=== PATIENT | female | born 1980 | race Caucasian/White ===

== ENCOUNTER → 2018-01-26 15:12 | Outpatient (CLI) | payer OTHER, SELFPAY ==
[2018-01-29 13:08] LABS: HPV APTIMA, High Risk Negative (Negative)
== END ==
PROVIDERS: Family Provider Family Medicine; PCP Family Medicine; Visit Provider Obstetrics & Gynecology
DX: Z12.4 Encounter for screening for malignant neoplasm of cervix (principal); Z11.51 Encounter for screening for human papillomavirus (HPV)
CPT/HCPCS: 88175; G0145

== ENCOUNTER → 2020-03-03 07:18 | Outpatient (CLI) | payer OTHER, SELFPAY ==
[2018-11-27 16:50] VITALS: BMI 22.9
[2020-03-03 08:22] LABS: Amphetamine Urine VISTA NEGATIVE (<1000 ng/mL); Barbiturate Urine VISTA NEGATIVE (< 200 ng/mL); Benzodiazepine Urine VISTA NEGATIVE (< 200 ng/mL); Cocaine Urine VISTA NEGATIVE (< 300 ng/mL); Ecstacy Urine VISTA POSITIVE (< 500 ng/mL); Methadone Urine VISTA NEGATIVE (< 300 ng/mL); PCP Urine VISTA NEGATIVE (< 25 ng/mL); THC Urine VISTA NEGATIVE (< 50 ng/mL); Vista UDS pH Range 6
[2020-03-03 08:23] LABS: SARS-COV-2 TOTAL ABS Nonreactive (Nonreactive)
== END ==
PROVIDERS: PCP Family Medicine; Referring Provider Family Medicine; Visit Provider Family Medicine
DX: Z20.828 Contact with and (suspected) exposure to other viral communicable diseases (principal)
CPT/HCPCS: 36415; 80307; 86769

== ENCOUNTER → 2020-03-07 11:40 | Outpatient (CLI) | payer OTHER, SELFPAY ==
[2018-11-27 16:50] VITALS: BMI 22.9
[2020-03-07 13:11] LABS: Amphetamine Urine VISTA NEGATIVE (<1000 ng/mL); Barbiturate Urine VISTA NEGATIVE (< 200 ng/mL); Benzodiazepine Urine VISTA NEGATIVE (< 200 ng/mL); Cocaine Urine VISTA NEGATIVE (< 300 ng/mL); Ecstacy Urine VISTA POSITIVE (< 500 ng/mL); Methadone Urine VISTA NEGATIVE (< 300 ng/mL); PCP Urine VISTA NEGATIVE (< 25 ng/mL); THC Urine VISTA NEGATIVE (< 50 ng/mL); Vista UDS pH Range 7
== END ==
PROVIDERS: PCP Family Medicine; Referring Provider Family Medicine; Visit Provider Family Medicine
DX: Z02.1 Encounter for pre-employment examination (principal)
CPT/HCPCS: 80307

== ENCOUNTER → 2021-04-05 14:58 | Outpatient (CLI) | payer BC, SELFPAY ==
[2020-04-03 15:42] VITALS: BMI 25.3
--- NOTE | 2021-04-05 15:03 | BI_ITS ---
MAMMOGRAPHY - BILATERAL SCREENING REASON FOR EXAM: Female, 41 years old. Routine annual screening examination. PERTINENT HISTORY: Aunts with breast cancer. TECHNIQUE: Digital bilateral breast dmitry (3D mammographic acquisition) in the CC and MLO projections. 2-D mediolateral oblique (MLO) and craniocaudad (CC) views of both breasts were obtained. CAD: Full Field Digital Mammography with Computer Added Detection was performed. COMPARISON: Comparison is made with prior study of 10/28/2012. FINDINGS: Breast Composition: The breasts are extremely dense, which lowers the sensitivity of mammography. There are no dominant masses or suspicious calcifications. Stable calcified nodule in the upper medial aspect of the left breast with calcified fibroadenoma. No other significant abnormalities are identified. There has been no significant change since the prior study. BI/SCRN MAMM (CAD)W/DMITRY BILAT IMPRESSION: Stable bilateral screening mammogram. Yearly follow-up mammogram recommended. (A) ASSESSMENT CATEGORY: BIRADS Category 2: Benign. A letter regarding these results will be sent to the patient by the facility within 30 days. Approximately 10% of breast cancers are not detected by mammography. A normal mammogram should not delay biopsy of a clinically suspicious abnormality. [id number] Electronically Signed: Lv Garcia MD at 15:48 EDT , Service support ,
== END ==
PROVIDERS: PCP Family Medicine; Referring Provider Obstetrics & Gynecology; Visit Provider Obstetrics & Gynecology
DX: Z12.31 Encounter for screening mammogram for malignant neoplasm of breast (principal)
CPT/HCPCS: 77063; 77067

== ENCOUNTER → 2022-04-16 | Outpatient (CLI) | payer BC, SELFPAY ==
--- NOTE | 2022-04-16 15:16 | BI_ITS ---
MAMMOGRAPHY - BILATERAL SCREENING REASON FOR EXAM: Female, 42 years old. Routine annual screening examination. PERTINENT HISTORY: Aunts with breast cancer. TECHNIQUE: Digital bilateral breast dmitry (3D mammographic acquisition) in the CC and MLO projections. 2-D mediolateral oblique (MLO) and craniocaudad (CC) views of both breasts were obtained. CAD: Full Field Digital Mammography with Computer Added Detection was performed. COMPARISON: Comparison is made with prior study dated 04/05/2021 and 10/28/2012. FINDINGS: Breast Composition: The breasts are extremely dense, which lowers the sensitivity of mammography. There are no dominant masses or suspicious calcifications. Stable 2.3 cm x 1.4 cm densely calcified nodule in the slightly upper medial aspect of the left breast. Stable partially calcified nodule in the axillary region of the left breast No other significant abnormalities are identified. There has been no significant change since the prior study. BI/SCRN MAMM (CAD)W/DMITRY BILAT IMPRESSION: Stable bilateral screening mammogram. Yearly follow-up mammogram recommended. (A) ASSESSMENT CATEGORY: BIRADS Category 2: Benign. A letter regarding these results will be sent to the patient by the facility within 30 days. Approximately 10% of breast cancers are not detected by mammography. A normal mammogram should not delay biopsy of a clinically suspicious abnormality. [id number] Electronically Signed: Lv Garcia MD at 9:41 EDT ,
== END | disposition home or self-care (01) ==
LOC: OPBI 15:15
PROVIDERS: PCP Family Medicine; Visit Provider Obstetrics & Gynecology
DX: Z12.31 Encounter for screening mammogram for malignant neoplasm of breast (principal)
CPT/HCPCS: 77063; 77067

== ENCOUNTER → 2022-04-18 | Outpatient (CLI) | payer BC, SELFPAY ==
[2022-04-25 11:03] LABS: HPV APTIMA, High Risk Negative (Negative)
== END | disposition home or self-care (01) ==
LOC: LABSPEC 16:46
PROVIDERS: PCP Family Medicine; Visit Provider Obstetrics & Gynecology
DX: Z01.419 Encounter for gynecological examination (general) (routine) without abnormal findings (principal)
CPT/HCPCS: 87624; 88175; G0145

== ENCOUNTER → 2023-01-02 | Outpatient (CLI) | payer BC, SELFPAY ==
[2023-01-02 12:20] LABS: Absolute Lymphocyte Count 2.04 X10^3/uL (0.83-4.51); Absolute Neutrophil Count 3.1 X10^3/uL (2.0-7.7); Basophil# 0.05 X10^3/uL; Basophil% 0.9 % (0-1); Eosinophil# 0.09 X10^3/uL; Eosinophils% 1.5 % (0-5); Hematocrit 42.5 % (37-47); Hemoglobin 13.7 g/dL (12.0-15.0); Lymphocyte # 2.04 X10^3/ul (0.83-4.51); Lymphocyte % 35.1 % (19-41); Mean Corp Hgb Conc 32.2 g/dL (32-36); Mean Corpuscular Hgb 29.8 pg (27.0-32.0); Mean Corpuscular Volume 92.4 fL (81-99); Mean Platelet Vol. 10.1 fl (6.2-12.0); Monocyte# 0.53 X10^3/uL; Monocyte% 9.1 % (0-10); NRBC Flagged by Analyzer 0 % (0-5); Neutrophil % 53.2 % (47-70); Platelet Count 316 K/mm3 (150-450); RBC Distribution Width CV 12.8 % (11.6-14.6); RBC Distribution Width SD 43.7 fl (35.1-43.9); White Blood Count 5.8 K/mm3 (4.4-11.0)
[2023-01-02 12:48] LABS: ALB/GLOB Ratio 0.9 RATIO (0.9-2.4); AST(SGOT) 23 U/L (15-37); Alanine Aminotransfer ALT/SGPT 20 U/L (13-56); Albumin, Serum 3.7 g/dL (3.2-5.0); Alkaline Phosphatase 69 U/L (45-117); Anion Gap 5 (5-15); BUN 11 mg/dL (7-18); BUN/Creat Ratio 14.4 RATIO (10-20); Calcium,Total 9.2 mg/dL (8.5-10.1); Chloride 104 mmol/L (98-107); Cholesterol 235 mg/dL (200); Creatinine, Serum 0.76 mg/dL (0.55-1.02); EST Glomerular Filtration Rate 88 mL/min (>60); Est Glom Filt Rate - Afr Amer 107 mL/min (>60); Globulin 4.1 g/dL (2.2-4.2); Glucose 89 mg/dL (74-106); High Density Lipoprotein 63 mg/dL; Potassium 4.1 mmol/L (3.5-5.1); Protein, Total 7.8 g/dL (6.4-8.2); Sodium Level 137 mmol/L (136-145); Thyroid Stim Hormone (TSH) 0.93 uIU/mL (0.358-3.74); Triglycerides 55 mg/dL; Very Low Density Lipoprotein 11 mg/dL (5-40)
== END | disposition home or self-care (01) ==
LOC: BFHLAB 08:34
PROVIDERS: PCP Family Medicine; Referring Provider Family Medicine; Visit Provider Family Medicine
DX: Z00.00 Encounter for general adult medical examination without abnormal findings (principal)
CPT/HCPCS: 36415; 80053; 80061; 84443; 85025

== ENCOUNTER → 2023-04-24 | Outpatient (CLI) | payer BC, SELFPAY ==
--- NOTE | 2023-04-24 15:17 | BI_ITS ---
MAMMOGRAPHY - BILATERAL SCREENING REASON FOR EXAM: Female, 43 years old. Routine annual screening examination. PERTINENT HISTORY: Aunts with breast cancer. TECHNIQUE: Digital bilateral breast dmitry (3D mammographic acquisition) in the CC and MLO projections. 2-D mediolateral oblique (MLO) and craniocaudad (CC) views of both breasts were obtained. CAD: Full Field Digital Mammography with Computer Added Detection was performed. COMPARISON: Comparison is made with prior study April 16, 2022 and April 05, 2021. FINDINGS: Breast Composition: The breasts are extremely dense, which lowers the sensitivity of mammography. There are no dominant masses or suspicious calcifications. Stable 2.3 cm x 1.4 cm densely calcified nodule in the slightly upper medial aspect of the left breast. Stable partially calcified nodule in the axillary region of the left breast. No other significant abnormalities are identified. There has been no significant change since the prior study. BI/SCRN MAMM (CAD)W/DMITRY BILAT IMPRESSION: Stable bilateral screening mammogram. Yearly follow-up mammogram recommended. (A) ASSESSMENT CATEGORY: BIRADS Category 2: Benign. A letter regarding these results will be sent to the patient by the facility within 30 days. Approximately 10% of breast cancers are not detected by mammography. A normal mammogram should not delay biopsy of a clinically suspicious abnormality. [id number] Electronically Signed: Lv Garcia MD at 8:31 EDT ,
== END | disposition home or self-care (01) ==
LOC: OPBI 15:16
PROVIDERS: PCP Family Medicine; Referring Provider Obstetrics & Gynecology; Visit Provider Obstetrics & Gynecology
DX: Z12.31 Encounter for screening mammogram for malignant neoplasm of breast (principal); Z80.3 Family history of malignant neoplasm of breast
CPT/HCPCS: 77063; 77067

== ENCOUNTER → 2024-07-06 | Outpatient (CLI) | payer BC, SELFPAY ==
--- NOTE | 2024-07-06 13:09 | BI_ITS ---
MAMMOGRAPHY - BILATERAL SCREENING 3-D TOMOSYNTHESIS REASON FOR EXAM: Female, 44 years old. breast cancer screening PERTINENT HISTORY: No significant family history. TECHNIQUE: 2-D mammograms and 3-D Tomosynthesis of the breast (s) were performed. CAD was performed. COMPARISON: 04/24/2023 FINDINGS: The breast composition is Extermely dense tissue. Scattered benign calcifications are seen. No dense spiculated masses or suspicious microcalcifications are identified. No architectural distortion is identified. There is no skin thickening or retraction. There has been no significant change since the prior study. No change in a 3 cm oval circumscribed equal density mass in the upper inner quadrant of the left breast with coarse calcifications which has been biopsied consistent with a degenerating fibroadenoma. BI/SCRN MAMM (CAD)W/DMITRY BILAT IMPRESSION: No mammographic signs of malignancy. Routine yearly mammograms recommended. ASSESSMENT CATEGORY: BIRADS Category 2: Benign. A letter regarding these results will be sent to the patient by the facility within 30 days. FOLLOW UP RECOMMENDATION: Yearly follow up mammogram recommended. (A) Approximately 10% of breast cancers are not detected by mammography. A normal mammogram should not delay biopsy of a clinically suspicious abnormality. Electronically Signed: Amauri Smiht MD at 14:52 EST ,
== END | disposition home or self-care (01) ==
LOC: OPBI 13:09
PROVIDERS: PCP Family Medicine; Referring Provider Obstetrics & Gynecology; Visit Provider Obstetrics & Gynecology
DX: Z12.31 Encounter for screening mammogram for malignant neoplasm of breast (principal)
CPT/HCPCS: 77063; 77067

== ENCOUNTER → 2025-07-08 | Outpatient (CLI) | payer BC, SELFPAY ==
--- NOTE | 2025-07-08 08:30 | BI_ITS ---
EXAM: SCRN MAMM (CAD)W/DMITRY BILAT DATE: 07/08/2025 CLINICAL HISTORY: F, Age 45 y/o , SCREEN FOR BREAST CANCER TECHNIQUE: Procedure Code: [id number] Modality: MG Procedure: SCRN MAMM (CAD)W/DMITRY BILAT COMPARISON: Prior exam(s) dated 07/06/2024, 04/24/2023, and 04/16/2022. FINDINGS: TISSUE DENSITY: The breasts are heterogeneously dense, which may obscure small masses. Bilateral Breast Mammographic Findings: There are no suspicious masses, suspicious clustered microcalcifications, architectural distortion or secondary signs of malignancy identified in either breast. Benign-appearing round microcalcifications are seen in both breasts. 2 partially obscured isodense masses are seen in the left breast with coarse calcifications within them. These are most compatible with degenerating fibroadenomas and are similar when compared to the prior exams. These are located in superior outer quadrant and superior medial quadrant. There is a partially obscured stable isodense mass in the lateral, middle 3rd aspect of the left breast. BI/SCRN MAMM (CAD)W/DMITRY BILAT IMPRESSION: Benign screening mammogram OVERALL FINAL ASSESSMENT BI-RADS 2: BENIGN RECOMMENDATION: Routine annual follow-up in 1 Year Additional Recommendation none A letter with findings and recommendations will be mailed to the patient. Reading Location: [id number]
--- OUTSIDE RECORDS SUMMARY | 2025-07-08 08:52 | XMS RPT_ITS | CCD ---
Author Organization [facility] Care Team Providers Care Customer Sales Distributor Name Role Phone Dr. Gilberto Card Primary Care Provider Dr. Gilberto Card Referring Provider Dr. Bonita Joiner Attending Provider Gilberto Card Referring Unavailable Stevie Cedeno Attending Unavailable Gilberto Card Primary Care Unavailable Bonita Joiner Attending Unavailable Bonita Joiner Referring Unavailable Gilberto Card Primary Care Unavailable Katie Rolle Attending Unavailable Katie Rolle Referring Unavailable Gilberto Card Primary Care Unavailable Gilberto Card Referring Unavailable Katie Rolle Attending Unavailable Gilberto Card Primary Care Unavailable Allergies Allergy Classification Reported Allergen(s) Allergy Type Date of Onset Reaction(s) Facility (2 sources) buPROPion Drug Allergy 04-03-2020 Other [facility] (1 source) buPROPion Drug Allergy 12-07-2024 [facility] Repository Medications Current Medications Medication Drug Class(es) Dates Sig (Normalized) Sig (Original) fluticasone propionate 0.05 mg/actuat metered dose nasal spray (2 sources) Corticosteroid Start: 09-18-2021 take 1 spray(s) nasal route once daily Fluticasone Propionate (Allergy Relief (Fluticasone)) 50 mcg/actuation spray,suspension Active 1 SPRAY INTRANASAL DAILY September 18, 2021 1:00am administer into each nostril traZODone hydrochloride 100 mg oral tablet (2 sources) Serotonin Reuptake Inhibitor Start: 01-26-2018 take 100 mg by mouth once daily Trazodone Active 100 MG PO daily January 26, 2018 12:00am 24 hr venlafaxine 37.5 mg extended release oral capsule (2 sources) Serotonin and Norepinephrine Reuptake Inhibitor Start: 01-26-2018 take 1 capsule by mouth once daily Venlafaxine (Effexor Xr) 37.5 mg capsule,extended release 24hr Active 37.5 MG PO daily January 26, 2018 12:00am Completed/Discontinued Medications Medication Drug Class(es) Dates Sig (Normalized) Sig (Original) amoxicillin 875 mg / clavulanate 125 mg oral tablet (4 sources) Penicillin-class Antibacterial Start: 09-18-2021 End: 04-18-2022 take 1 tablet by mouth every twelve hours Amoxicillin-Pot Clavulanate Discontinued 1 TABLET PO Q12H September 18, 2021 1:00am April 18, 2022 3:28pm Start: 11-27-2018 End: 12-07-2018 take 1 tablet by mouth every twelve hours Amoxicillin-Pot Clavulanate (Augmentin) 875-125 mg tablet Discontinued 1 TABLET PO Q12H 30 05November 27, 2018 12:00am December 07, 2018 12:10am Problems Active Problems Problem Classification Problem Date Documented Da te Episodic/Chronic Anxiety disorders (2 sources) Mixed anxiety and depressive disorder; Translations: [Anxiety disorder, unspecified] 04-03-2020 Chronic Other screening for suspected conditions (not mental disorders or infectious disease) (2 sources) Encounter for screening mammogram for malignant neoplasm of breast; Translations: [Encounter for screening mammogram for malignant neoplasm of breast] Onset: 08-06-2024 Episodic Other upper respiratory disease (2 sources) Allergic rhinitis; Translations: [Allergic rhinitis, unspecified] 04-03-2020 Chronic Other upper respiratory infections (2 sources) Acute sinusitis; Translations: [Acute sinusitis, unspecified] 11-27-2018 Episodic Residual codes; unclassified (2 sources) Insomnia; Translations: [Insomnia, unspecified] 04-03-2020 Episodic Past or Other Problems Problem Classification Problem Date Documented Da te Episodic/Chronic Residual codes; unclassified (1 source) Other general symptoms and signs; Translations: [Other general symptoms and signs] Onset: 12-07-2024 Episodic Results Test Name Value Interpretation Reference Range Facility Office Visit Reporton 2024 Office Visit Report [place] [address] [place] [address] OFFICE VISIT Date of Service: 12/07/24 MR#: [id number] Acct: [id number] Patient: TEENA ACUNA Rep #: [id number] : 1980 Provider: DORIAN Swain Age/Sex: 44/F Location[place] [facility] [place] Status: Signed Intake Vital Signs 07/12/24 10:36 12/07/24 08:29 Height 1.68 m 1.68 m Weight: 82.1 kg BMI 29.2 BP 118/84 H Blood Pressure Location Lt brachial Position Sitting Pulse 102 H Pulse Source Monitor Temp 98.4 F Temp Source Temporal Pulse Oximetry (%) 97 Intake Visit Reasons: SORE THROAT/ CONGESTION/ACHES Chief Complaint: sinus congestion Allergies bupropion (From Wellbutrin) Allergy (Mild, Verified 12/07/24 08:30) Other Medications ???Medication ???Instructions ???Recorded ???Confirmed ???Type trazodone 100 mg tablet 100 mg PO QDAY 01/26/18 12/07/24 H istory venlafaxine 37.5 mg 37.5 mg PO QDAY 01/26/18 12/07/24 History capsule,extended release 24 hr (Effexor XR) fluticasone propionate 50 1 spray intranasal DAILY #16 grams 09/18/21 12/07/24 Rx mcg/actuation nasal spray,suspension (Allergy Relief (fluticasone)) amoxicillin 875 mg-potassium 1 tab PO Q12H #14 tabs 12/07/24 Rx clavulanate 125 mg tablet dextromethorphan-guaife nesin ER 60 1 tab PO Q12H PRN cold symptoms 12/07/24 12/07/24 Rx mg-1,200 mg tab,extend #14 tabs release,12hr (Mucinex DM) PFSH Medical History (Updated 12/07/24 @ 08:31 by Anabell Rajan) Essential and other specified forms of tremor Chronic allergic rhinitis Insomnia 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 Chief Complaint: sinus congestion Details: TEENA ACUNA, is a 44 F who presents to the office today for sinus congestion. Pt has been sick about 4 days. She has fever 99-100F, with subjective chills and sweats. She has maxillary sinus pressure, nasal congestion, sore throat, productive cough. She has no n/v/d. No SOB. Her son is also sick. ROS Const Constitutional: Positive for chills, fever(s) and headache(s); No fatigue ENT ENT: Positive for nasal congestion, sinus pressure, headache(s) and sore throat; No ear or mastoid pain Resp Respiratory: Positive for cough Cough: Yes productive; No shortness of breath or wheezing Gastro GI: No diarrhea, nausea/dyspepsia or vomiting Neuro Neurology: Positive for headache(s) Endo Endocrine: No fatigue Aller/Imm Allergy/Immunologic: No wheezing Exam Const General: cooperative, healthy appearing, comfortable, no acute distress, well developed and well groomed Nutritional Appearance: average body habitus and well nourished Orientation: alert, awake and oriented x3 HENMT Head: normocephalic and atraumatic Ears: hearing grossly normal bilaterally, external ears normal and TM's normal bilaterally Nose: mucous membranes and turbinates abnormal boggy and erythematous Throat: tonsils normal, uvula midline, posterior oropharynx abnormal cobblestoning and erythema and postnasal drainage Neck Lymphatic: lymphadenopathy bilateral anterior cervical Resp Effort Inspection: normal respiratory effort, able to speak in complete sentences, symmetric chest movement and no cough Auscultation: Bilateral: Clear to Auscultation Cardio Rate: regular rate Rhythm: regular rhythm Heart Sounds: no murmurs Results POC FLU A B Office Flu A B Negative FLU A B Last Edit by Anabell Rajan on 12/07/24 08:39 Coding Level of Care Code Off vis,est,level 3 Diagnoses Acute non-recurrent maxillary sinusitis J01.00 Sinusitis location: maxillary Recurrence: non-recurrent Assessment and Plan Assessment and Plan (1) Sinusitis, acute: Status: Acute Qualifiers: Sinusitis location: maxillary Recurrence: non-recurrent Qualified Code(s): J01.00 - Acute maxillary sinusitis, unspecified Plan: rapid flu test is negative at this time. start amox/clav bid x 7 days and mucinex dm prn cough/congestion if no improvement follow up for re-eval 1-2 weeks or if worsening go to the ER Orders: Orders POC FLU A B Today R68.89 - Other general sympt (more content not included)... 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: No Is patient in pain?: No Allergies bupropion (From Wellbutrin) Allergy (Mild, Verified 07/12/24 10:35) Other Medications ???Medication ???Instructions ???Recorded ???Confirmed ???Type trazodone 100 mg tablet 100 mg PO QDAY 01/26/18 07/12/24 History venlafaxine 37.5 mg 37.5 mg PO QDAY 01/26/18 07/12/24 History capsule,extended release 24 hr (Effexor XR) fluticasone propionate 50 1 spray intranasal DAILY #16 grams 09/18/21 07/12/24 Rx mcg/actuation nasal spray,suspension (Allergy Relief (fluticasone)) Is last menstrual period known: Yes Last Menstrual Period: 07/23/24 Post menopausal: No Patient : No : No Do you think of yourself as: straight/heterosexual Current gender identity: female Control Method: none PFSH Medical History Essential and other specified forms of tremor Chronic allergic rhinitis Insomnia 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 Anxiety and depression Surgical History H/O breast biopsy Status post aorta repair Family History Mother Heart disease COPD (chronic obstructive pulmonary disease) Father Hypertension Social History do you think of yourself as: straight/heterosexual current gender identity: female Smoking Status: Never smoker alcohol intake: never substance use type: does not use caffeine: Yes what type of physical activity do you participate in: none frequency: daily seatbelt use: always do you feel safe at home: Yes additional social history: [employer] 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 She reports no issues or concerns today. Last PAP: 2021; normal History of abnormal PAP: none Last mammogram: 06/2024; normal. History of abnormal mammogram: none Colon cancer screening: none Other preventative health care screenings: PCP: Dr. Card. Female Reproductive History Last Menstrual Period: 07/23/24 Cycle Length: 21-35 Bleeding Duration: 5 Questions: metorrhagia: No, sexually active: Yes, dyspareunia: No and PCB: No Menopausal Symptoms: No hot flashes, No night sweats, No difficulty concentrating and No change in libido ROS Const Constitutional: Reports as per HPI; Denies fatigue, increased appetite, poor appetite, night sweats, weight gain or weight loss Cardio Card: Denies chest pain Resp Resp: Denies cough or dyspnea GI GI: Reports as per HPI; Denies abdominal pain, bloating, constipation, nausea or vomiting : Reports as per HPI and other; Denies difficulty voiding, dysuria, hematuria, hot flashes, nipple discharge, pelvic pain, prolapse symptoms, urinary frequency, urinary incontinence, urinary urgency, vaginal discharge, vaginal dryness, vaginal odor or vaginal pruritus Skin Skin/Breast: Denies changing lesions, breast mass, breast pain, breast skin changes or nipple discharge Psych Psych: Denies anxiety, change in libido, depression or difficulty concentrating Exam Const General: cooperative, healthy appearing, comfortable, no acute distress, well developed and well groomed [facility] Head: normal to inspection and normocephalic Ears: hearing grossly normal bilaterally and external ears normal Nose: external nose normal Face and sinus: normal facial exam Neck Neck: normal visual inspection, full ROM and no lymphadenopathy Thyroid: thyroid normal Chest Chest palpation inspection: normal inspection of the chest Breast inspection: normal inspection of the breasts and normal inspection of the axillae Breast palpation: normal palpation of the breasts, normal palpation of the axillae and no axillary lymphadenopathy Resp Effort Inspection: normal respiratory effort GI Inspection: normal to inspection and non-distended Palpation: soft, no hepatosplenome (more content not included)... Normal [facility] SCRN MAMM (CAD)W/DMITRY BILATo n 07-06-2024 SCRN MAMM [facility] Imaging Services [address] [place] [id number] SCRN MAMM (CAD)W/DMITRY BILAT MR#: [id number] Acct: [id number] Name: TEENA ACUNA Rep #: [id number] : 1980 F 44 From: Amauri Smith MD PCP: Dr. Gilberto Card, DO Status: [facility] Study: SCRN MAMM (CAD)W/DMITRY BILAT Date of Exam: 06/12 02/01 Exam# [id number] Ordering Dr: Katie Rolle TO[employer] DIE REPAIR-C [id number] MAMMOGRAPHY - BILATERAL SCREENING 3-D TOMOSYNTHESIS REASON FOR EXAM: Female, 44 years old. breast cancer screening PERTINENT HISTORY: No significant family history. TECHNIQUE: 2-D mammograms and 3-D Tomosynthesis of the breast (s) were performed. CAD was performed. COMPARISON: 04/24/2023 FINDINGS: The breast composition is Extermely dense tissue. Scattered benign calcifications are seen. No dense spiculated masses or suspicious microcalcifications are identified. No architectural distortion is identified. There is no skin thickening or retraction. There has been no significant change since the prior study. No change in a 3 cm oval circumscribed equal density mass in the upper inner quadrant of the left breast with coarse calcifications which has been biopsied consistent with a degenerating fibroadenoma. BI/SCRN MAMM (CAD)W/DMITRY BILAT IMPRESSION: No mammographic signs of malignancy. Routine yearly mammograms recommended. ASSESSMENT CATEGORY: BIRADS Category 2: Benign. A letter regarding these results will be sent to the patient by the facility within 30 days. FOLLOW UP RECOMMENDATION: Yearly follow up mammogram recommended. (A) Approximately 10% of breast cancers are not detected by mammography. A normal mammogram should not delay biopsy of a clinically suspicious abnormality. Electronically Signed: Amauri Smith MD at 14:52 EST Reading Location ID and State: [facility] / [place] Tel , Service support , CC: MARY Rolle; Dr. Gilberto Card, Timber Rider: Signed Normal [facility] Absolute lymphocyte countOrd ered By: Dr. Card on 01-02-2023 Lymphocytes Auto (Unsp spec) [#/Vol] 2.04 10*3/uL 0.83-4.51 [facility] Basophil percentageOrdered B y: Dr. Card on 01-02-2023 Basophils/100 WBC (Bld) 0.9 % 0-1 [facility] Bilirubin [Mass/Vol] 0.60 mg/dL 0.20-1.00 [facility] Comment on above: For patients on eltr ombopag therapy, use of Dimension [place] TBIL is not recommended. Chloride [Moles/Vol] 104 mmol/L 98-107 [facility] Cholesterol [Mass/Vol] 235 mg/dL <200 [facility] Comment on above: <200 mg/dL Desirable 200-240 mg/dL Borderline >240 mg/dL High Risk Eosinophils/100 WBC (Bld) 1.5 % 0-5 [facility] Glucose [Mass/Vol] 89 mg/dL 74-106 [facility] Neutrophils (Bld) [#/Vol] 3.1 10*3/uL 2.0-7.7 [facility] Neutrophils/100 WBC (Bld) 53.2 % 47-70 [facility] Potassium [Moles/Vol] 4.1 mmol/L 3.5-5.1 [facility] Protein [Mass/Vol] 7.8 g/dL 6.4-8.2 [facility] Sodium [Moles/Vol] 137 mmol/L 136-145 [facility] Triglyceride [Mass/Vol] 55 mg/dL <199 [facility] Comment on above: The drugs N-Acetylcy steine and Metamizole may falsely depress this assay.Serum Triglycerides Reference Interval Normal <150 mg/dL Borderline high 150 - 199 mg/dL High 200 - 499 mg/dL Very High > or = 500 mg/dL WBC (Bld) [#/Vol] 5.8 10*3/uL 4.4-11.0 [facility] Blood erythrocytes count (nu mber/volume)Ordered By: Dr. Card on 01-02-2023 RBC (Bld) [#/Vol] 4.60 10*6/uL 4.2-5.4 [facility] Blood hemoglobin measurement (mass/volume)Ordered By: Dr. Card on 01-02-2023 Hemoglobin (Bld) [Mass/Vol] 13.7 g/dL 12.0-15.0 [facility] Blood lymphocytes/100 leukoc ytesOrdered By: Dr. Card on 01-02-2023 Lymphocytes/100 WBC (Bld) 35.1 % 19-41 [facility] Blood monocytes/100 leukocyt esOrdered By: Dr. Card on 01-02-2023 Monocytes/100 WBC (Bld) 9.1 % 0-10 [facility] Blood platelet mean volumeOr dered By: Dr. Card on 01-02-2023 Platelet mean volume (Bld) [Entitic vol] 10.1 fL 6.2-12.0 [facility] Determination of erythrocyte mean corpuscular volume (MCV)Ordered By: Dr. Card on 01-02-2023 MCV (RBC) [Entitic vol] 92.4 fL 81-99 [facility] Hematocrit Auto (Bld) [Volum e fraction]Ordered By: Dr. Card on 01-02-2023 Hematocrit (Bld) [Volume fraction] 42.5 % 37-47 [facility] Laboratory - Chemistry and C hemistry - challengeOrdered By: Dr. Card on 01-02-2023 ALP [Catalytic activity/Vol] 69 U/L 45-117 [facility] ALT [Catalytic activity/Vol] 20 U/L 13-56 [facility] CO2 [Moles/Vol] 28.0 mmol/L 21.0-32.0 [facility] Globulin (S) [Mass/Vol] 4.1 g/dL 2.2-4.2 [facility] Urea nitrogen/Creatinine [Mass ratio] 14.4 mg/mg 10-20 [facility] - Hematology and Cell countsOrdered By: Dr. Card on 01-02-2023 Erythrocyte distribution width (RBC) [Entitic vol] 43.7 fL 35.1-43.9 [facility] Erythrocyte distribution width (RBC) [Ratio] 12.8 % 11.6-14.6 [facility] Immature granulocytes/100 WBC (Bld) 0.200 % 0.0-0.9 [facility] Comment on above: IG% - Immature Granu locytes (promyelocytes, myelocytes and metamyelocytes) > 1% indicates that a LEFT SHIFT is Present. MCH (RBC) [Entitic mass] 29.8 pg 27.0-32.0 [facility] Nucleated RBC/100 WBC (Bld) [Ratio] 0 % 0-5 [facility] MCHC Auto (RBC) [Mass/Vol]Or dered By: Dr. Card on 01-02-2023 MCHC (RBC) [Mass/Vol] 32.2 g/dL 32-36 [facility] No Panel InformationOrdered By: Dr. Card on 01-02-2023 Estimated GFR (MDRD) Amer 107 mL/min >60 [facility] Comment on above: GFR Calc Estimated GFR (MDRD) Non-Af Amer 88 mL/min >60 [facility] Comment on above: Non- GFR Calc Thyroid Stimulating Hormone (TSH) 0.93 uIU/mL 0.358-3.74 [facility] Platelets bldOrdered By: Dr. Card on 01-02-2023 Platelets (Bld) [#/Vol] 316 10*3/uL 150-450 [facility] Serum or plasma albumin clarence urement (mass/volume)Ordered By: Dr. Card on 01-02-2023 Albumin [Mass/Vol] 3.7 g/dL 3.2-5.0 [facility] Serum or plasma albumin/glob ulin mass ratioOrdered By: Dr. Card on 01-02-2023 Albumin/Globulin [Mass ratio] 0.9 {ratio} 0.9-2.4 [facility] Serum or plasma calcium clarence urement (mass/volume)Ordered By: Dr. Card on 01-02-2023 Calcium [Mass/Vol] 9.2 mg/dL 8.5-10.1 [facility] Serum or plasma cholesterol in HDL measurement (mass/volume)Ordered By: Dr. Card on 01-02-2023 Cholesterol in HDL [Mass/Vol] 63 mg/dL >40 [facility] Comment on above: The drugs N-Acetylcy steine and Metamizole may falsely depress this assay. Reference Range HDL <40 mg/dL Low HDL Cholesterol HDL >or= 60 mg/dL High HDL Cholesterol Serum or plasma cholesterol in VLDL measurement (mass/volume)Ordered By: Dr. Card on 01-02-2023 Cholesterol in VLDL [Mass/Vol] 11 mg/dL 5-40 [facility] Serum or plasma creatinine m easurement (mass/volume)Ordered By: Dr. Card on 01-02-2023 Creatinine [Mass/Vol] 0.76 mg/dL 0.55-1.02 [facility] Comment on above: The validity of the calculated GFR & GFRAA in patients over 70 years has not been determined. Clinical correlation is essential. Serum or plasma low density lipoprotein (LDL) cholesterol measurement (mass/volume)Ordered By: Dr. Card on 01-02-2023 Cholesterol in LDL [Mass/Vol] 161 mg/dL 0-130 [facility] Serum or plasma urea nitroge n measurement (mass/volume)Ordered By: Dr. Card on 01-02-2023 Urea nitrogen [Mass/Vol] 11 mg/dL 7-18 [facility] Thin prep Papanicolaou smear with manual screeningOrdered By: Dr. Card on 01-02-2023 Thin prep Papanicolaou smear with manual screening 23 U/L 15-37 [facility] Thin prep Papanicolaou smear with manual screening 5 5-15 [facility] Vital Signs Date Time Vital Sign Value Performing Clinician Faci lity 04-18-2022 15:28-0400 Body height 167.[address] Gilberto Card Work Phone: [facility] Work Phone: 04-18-2022 15:27-0400 Body mass index (BMI) [Ratio] 28.5 kg/m2 Dr. Gilberto Card Work Phone: [facility] Work Phone: 04-18-2022 15:27-0400 Body weight 80.[address] Gilberto Card Work Phone: [facility] Work Phone: 04-18-2022 15:27-0400 Diastolic blood pressure 78 mm[Hg] Dr. Gilberto Card Work Phone: [facility] Work Phone: 04-18-2022 15:27-0400 Systolic blood pressure 96 mm[Hg] Dr. Gilberto Card Work Phone: [facility] Work Phone: Encounters Encounter Date Encounter Type Care Provider Facility Start: 07-08-2025 ambulatory Katie Rolle Facility :[facility] Start: 12-07-2024 End: 12-07-2024 ambulatory Gilberto Card Facility:[facility] Start: 07-12-2024 Encounter for gynecological examination (general) (routine) [facility] Start: 07-12-2024 End: 07-12-2024 ambulatory Gilberto Card Facility:[facility] Start: 07-06-2024 End: 07-06-2024 ambulatory Bonita Joiner Facility:[facility] Start: 01-02-2023 End: 01-02-2023 ambulatory [facility] Work Phone: Start: 01-02-2023 End: 01-02-2023 Patient encounter procedure [facility] Start: 04-18-2022 End: 04-18-[address] Gilberto Card Work Phone: [facility] Work Phone: Start: 04-18-2022 End: 04-18-[address] Gilberto Card Work Phone: [facility], Specimen Start: 04-18-2022 End: 04-18-[address] Gilberto Card Work Phone: [facility] Start: 04-16-2022 End: 04-16-[address] Gilberto Card Work Phone: [facility] Procedures Date Procedure Procedure Detail Performing Clinician Start: 04-16-2022 Screening mammography Brock Card Work Phone: Plan of Treatment Date Care Activity Detail Author Start: 04-18-2022 Liquid based cervica l cytology screening [facility] Work Phone: Path report.final Dx Spec [facility] Work Phone: Immunizations Immunization Date Immunization Notes Care Provider Emy bates 06-01-2019 influenza, seasonal, injectable Dr. Gilberto Card Work Phone: [facility] 05-08-2018 influenza, seasonal, injectable Dr. Gilberto Card Work Phone: [facility] 05-16-2017 influenza, seasonal, injectable Dr. Gilberto Card Work Phone: [facility] 05-09-2016 influenza, seasonal, injectable Dr. Gilberto Card Work Phone: [facility] 06-26-2015 influenza, seasonal, injectable Dr. Gilberto Card Work Phone: [facility] 05-10-2014 influenza, seasonal, injectable Dr. Gilberto Card Work Phone: [facility] 08-19-[address] Gilberto Card Work Phone: [facility] 06-14-2013 hepatitis B vaccine, pediatric or pediatric/adolescent dosage Dr. Gilberto Card Work Phone: [facility] Payers Date Payer Category Payer Self-pay [id number] 2023 Unknown [id number] 2016 Unknown [id number] [id number] [id number] Unknown [id number] 2.16.8 [id number] Unknown [id number] 2.16.8 [id number] Unknown [id number] 2.16.8 [id number] Social History Date Type Detail Facility [facility]: [facility] Start: 1980 Sex Assigned At Female [facility] Progress note 10-13-2020 Note Date & Type Note Facility 10-13-2020 Note HNO ID: [id number] Author: Carolin Knight Service: ? Author Type: Utility System Repairer Type: Progress Notes Filed: 10/13/2020 8:32 AM Note Text: POPULATION HEALTH NAVIGATION OUTREACH Action/FYI Second attempt to reach patient - Mychart letter sent Contact made with patient or family member? NO Pt identified by name and : NO Outreach Outcome/Action MyChart message sent Reason for Outreach Attribution: Provider Off-boarding Payer: No coverage found. Care Gap Reviewed:: Annual Wellness visit Flu vaccine Reminder: Reminder note to check Health Maintenance for items below Health Maintenance items due: DEPRESSION SCREENING Completed HEPATITIS C SCREENING Completed HIV SCREENING Completed DTAP,TDAP,TD(6 - Td) due on 12/26/2018 PAP TESTING due on 03/28/2020 HPV TESTING due on 03/28/2020 INFLUENZA(1) Completed Advanced Directives Completed: Have you ever planned for future healthcare decisions with a power of contract attorney, living will, or advance directives? N/a Referrals: N/A Message Sent to Practice: NO Navigation Signature: Carolin Knight Population Health Navigator October 13, 2020 8:23 AM [facility] Progress note 10-12-2020 Note Date & Type Note Facility 10-12-2020 Note HNO ID: [id number] Author: Carolin Knight Service: ? Author Type: Utility System Repairer Type: Progress Notes Filed: 10/17/2020 12:55 PM Note Text: POPULATION HEALTH NAVIGATION OUTREACH Action/FYI Attempted to contact patient on 10/12/2020 Result: no answer at patient's phone - if patient returns call, please address - realigning patient with a new PCP, if patient does not already have an existing one - if patient has existing PCP, PCP field needs updated Contact made with patient or family member? NO Pt identified by name and : NO Outreach Outcome/Action Unable to reach patient: Phone number not valid / voicemail full Reason for Outreach Attribution: Provider Off-boarding Payer: No coverage found. Care Gap Reviewed:: Annual Wellness visit Flu vaccine Reminder: Reminder note to check Health Maintenance for items below Health Maintenance items due: DEPRESSION SCREENING due on 1993 HEPATITIS C SCREENING due on 1999 HIV SCREENING due on 1999 DTAP,TDAP,TD(6 - Td) due on 12/26/2018 PAP TESTING due on 03/28/2020 HPV TESTING due on 03/28/2020 INFLUENZA(1) due on 04/11/2020 Advanced Directives Completed: Have you ever planned for future healthcare decisions with a power of contract attorney, living will, or advance directives? N/a Referrals: N/A Message Sent to Practice: NO Navigation Signature: Carolin Knight Population Health Navigator October 12, 2020 1:34 PM [facility] Clinical Note 10-12-2020 Note Date & Type Note Facility 10-12-2020 Note Patient Outreach ([facility]) TEENA ACUNA ([id number]) 1980 F Date Time Provider Department 10/12/20 CAROLIN KNIGHT During your visit today, we recorded the following information about you: Carolin Knight Population Health Navigator 10/17/2020 12:55 PM Addendum POPULATION HEALTH NAVIGATION OUTREACH Action/FYI Attempted to contact patient on 10/12/2020 Result: no answer at patient's phone - if patient returns call, please address - realigning patient with a new PCP, if patient does not already have an existing one - if patient has existing PCP, PCP field needs updated Contact made with patient or family member? NO Pt identified by name and : NO Outreach Outcome/Action Unable to reach patient: Phone number not valid / voicemail full Reason for Outreach Attribution: Provider Off-boarding Payer: No coverage found. Care Gap Reviewed:: Annual Wellness visit Flu vaccine Reminder: Reminder note to check Health Maintenance for items below Health Maintenance items due: DEPRESSION SCREENING due on 1993 HEPATITIS C SCREENING due on 1999 HIV SCREENING due on 1999 DTAP,TDAP,TD(6 - Td) due on 12/26/2018 PAP TESTING due on 03/28/2020 HPV TESTING due on 03/28/2020 INFLUENZA(1) due on 04/11/2020 Advanced Directives Completed: Have you ever planned for future healthcare decisions with a power of contract attorney, living will, or advance directives? N/a Referrals: N/A Message Sent to Practice: NO Navigation Signature: Carolin Knight Population Health Navigator October 12, 2020 1:34 PM Carolin Knight Population Health Navigator 10/13/2020 8:32 AM Signed POPULATION HEALTH NAVIGATION OUTREACH Action/FYI Second attempt to reach patient - Mychart letter sent Contact made with patient or family member? NO Pt identified by name and : NO Outreach Outcome/Action MyChart message sent Reason for Outreach Attribution: Provider Off-boarding Payer: No coverage found. Care Gap Reviewed:: Annual Wellness visit Flu vaccine Reminder: Reminder note to check Health Maintenance for items below Health Maintenance items due: DEPRESSION SCREENING Completed HEPATITIS C SCREENING Completed HIV SCREENING Completed DTAP,TDAP,TD(6 - Td) due on 12/26/2018 PAP TESTING due on 03/28/2020 HPV TESTING due on 03/28/2020 INFLUENZA(1) Completed Advanced Directives Completed: Have you ever planned for future healthcare decisions with a power of contract attorney, living will, or advance directives? N/a Referrals: N/A Message Sent to Practice: NO Navigation Signature: Carolin Knight Population Health Navigator October 13, 2020 8:23 AM Allergies As of Date: 10/12/2020 Noted Allergy Reaction WELLBUTRIN (BUPROPION HCL) 06/29/2005 2 - Rash Date Reviewed: 10/08/2016 Reviewed by: Luana Galloway Ma - Fully Assessed Reason for Visit: Population Health Navigation Outreach [3910] Cmt: Offboarding Prescriptions as of 10/12/2020 Sig: AUGMENTIN ORAL Take by mouth. VITAMIN ORAL Take by mouth once daily. TRAZODONE 100 MG TABLET Take 1 tablet by mouth daily * Patient taking differently: Take 100 mg by mouth at bedti* Problem List As Of Date 10/12/2020 Noted Resolved Depressive disorder, not elsewhere classified [*09/10/2007 More... 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 Benign essential tremor [G25.0] 04/24/2012 More... Hyperlipidemia [E78.5] 04/24/2012 More... Female infertility [N97.9] 10/08/2016 Dysmenorrhea [N94.6] 10/08/2016 Encounter Status:Closed by TIGIST POPULATION HEALTH NAVIGATORCAROLIN on 10/13/20 [facility] Evaluation note Note Date & Type Note Facility Evaluation note Diagnosis Onset Date Encounter for routine gyneco logical examination noneactive [facility] Work Phone: Evaluation note Note Date & Type Note Facility Evaluation note No assessment information availa ble [facility] Work Phone: Summary Purpose Family History No Family History Records Found Relationship Condition Age at Onset Recorded Date/T elina mother Cardiac disease Unknown Chronic obstructive pulmonary disease Unk nown father Hypertension Unknown Advance Directives No Advanced Directives Records FoundNo Advanced Directives Records Found Chief Complaint and Reason for Visit 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 Gilberto Card DO Family Provider Active Dr. Gilberto Card DO Primary Care Provider Active Team Status: Inactive Member Role Status Dates Dr. Gilberto Card DO Primary Care Prov ider, Attending Provider, Referring Provider Active FOR RECORDS PERTAINING TO PATIENTS WHO ARE OR HAVE BEEN ENROLLED IN A CHEMICAL DEPENDENCY/SUBSTANCEABUSE PROGRAM, SOME INFORMATION MAY BE OMITTED. This clinical summary was aggregated from multiple sources. Caution should be exercised in using it in the provision of clinical care. This summary normalizes information from multiple sources, and as a consequence, information in this document may materially change the coding, format and clinical context of patient data. In addition, data may be omitted in some cases. CLINICAL DECISIONS SHOULD BE BASED ON THE PRIMARY CLINICAL RECORDS. [facility] [employer] [facility]. provides no warranty or guarantee of the accuracy or completeness of information in this document.
== END | disposition home or self-care (01) ==
LOC: OPBI 08:31
PROVIDERS: PCP Family Medicine; Referring Provider Nurse Practitioner Family; Visit Provider Nurse Practitioner Family
DX: Z12.31 Encounter for screening mammogram for malignant neoplasm of breast (principal)
CPT/HCPCS: 77063; 77067